=== PATIENT | female | born 1930 | race Caucasian/White ===

== ENCOUNTER 2016-06-04 16:24 | Inpatient (IN) | payer MEDICARE, BC ==
--- NOTE | ~2016-06-04 | DS ---
Unit #: [id number] #: [id number] Patient: DEENA FLOOD ??? [address] [place], [place] [address] [id number] I MR#: [id number] NAME: DEENA FLOOD ROOM: 474 Age: 86 Sex: F Admission Date: 06/04/2016 : 1930 Discharge Date: Attending Physician: Ivan Brooks M.D. DISCHARGE SUMMARY ADDENDUM Apparently, after speaking to the nurse and occupational therapist, the patient is a falls risk. She fell last night getting from the bedside commode to the bed, and she will need more therapy for ambulation assist prior to going home. Cardiology will clear her for discharge to subacute rehab if a bed becomes available. We have asked for special education case manager to place her in a subacute rehab facility for more mobility management and followup. The special education case manager will arrange placement with rehab today or tomorrow. Dictated by... GORDO Larkin TD: 06/10/2016 11:18 JOB #: [id number] DISCHARGE SUMMARY X X DISCHARGE SUMMARY
--- NOTE | ~2016-06-04 | CO ---
Unit #: [id number] #: [id number] Patient: DEENA FLOOD [id number] [address] [place], [place] [address] [id number] I MR#: [id number] NAME: DEENA FLOOD. ROOM: 555 Age: 86 Sex: F Admission Date: 06/04/2016 : 1930 Attending Physician: Ivan Brooks M.D. Primary Care Physician: Zandra Primary Care Physician Consultation Date: 06/06/2016 CONSULTATION REPORT REASON FOR CONSULTATION Elevated creatinine level. The patient is an 86-year-old white female with known history of coronary artery disease, status post CABG in 2013 with PLUNKETT to LAD and SVG to OM1 and distal RCA. The patient also has a history of chronic atrial fibrillation and previous admissions for the same. Creatinine level in the last three to four months has ranged in 2 to 2.5 with creatinine level of 0.9 in 2013. The intervening creatinines are not currently available. Patient admitted for possible cardioversion for her ongoing atrial fibrillation. PAST SURGICAL HISTORY Significant for: 1. CABG x3 in 2013. 2. PLUNKETT to LAD. 3. SVG to OM2. 4. Distal RCA. 5. Appendectomy. PAST SURGICAL HISTORY Significant for: 1. Coronary artery disease. 2. CKD stage 3. FAMILY HISTORY Unremarkable for end stage renal disease. ALLERGIES Penicillin. REVIEW OF SYSTEMS CVS: As above. RESPIRATORY: No cough, no expectoration. GI: No vomiting, no diarrhea. : No hematuria, no dysuria. PHYSICAL EXAMINATION GENERAL: The patient is awake and alert. VITAL SIGNS: The temperature is 98.9, pulse is 109/minute, blood pressure is 152/88. HEENT: Head is atraumatic. Extraocular movements are intact. Sclerae are anicteric. NECK: Supple. There is no elevation of the JVD. Unit #: [id number] #: [id number] Patient: DEENA FLOOD CHEST: Clear. Air entry is equal bilaterally. Breathing is vesicular in nature. HEART: S1, S2 audible. There is no S3, no S4. ABDOMEN: Soft. There is no organomegaly. No guarding, no rigidity, no rebound tenderness. There is trace edema. NEUROLOGICAL: Sensory exam and motor system intact. Cerebellar system is intact. DIAGNOSTIC STUDIES LABORATORY: Sodium is 142, potassium is 5.2, chloride is 98, CO2 is 29, BUN is 44, glucose is 93, creatinine is 2.8, calcium is 9.5, magnesium is 2. BNP is 1373. CBC is not available. IMPRESSION 1. Chronic kidney disease, likely stage 3, secondary to hypertensive nephrosclerosis: Will consider workup for paraproteinemia. Previously, proteinuria has been unremarkable. 2. Coronary artery disease. 3. Atrial fibrillation. 4. Status post coronary artery bypass graft x3. 5. Hypertension. Will follow the patient with you. Dictated by... Stephon Goddard TD: 06/06/2016 09:24 JOB #: [id number] CONSULTATION REPORT X Luis Eduardo Cuevas MD X CONSULTATION REPORT
--- NOTE | ~2016-06-04 | CR72 ---
[facility] A Service of [facility] RADIOLOGY TEXT RESULTS PATIENT: DEENA FLOOD LOCATION: [facility] 555 : [birth year] UNIT #: [id number] AGE: [address]: Ivan Brooks MD SEX: F ORDER DR: [id number] [facility] [address] [place], [place] [address] [id number] I MR#: [id number] Acc #: [id number] NAME: DEENA FLOOD : 1930 SEX: F STUDY DATE/TIME: 06/04/2016 19:13 UNIT: [facility] ROOM: [facility] STUDY DESCRIPTION: CR Chest Single View Portable Attending Physician: Ivan Brooks M.D. Ordering Physician: Ivan Brooks M.D. Primary Care Physician: Primary Care Physician No MEDICAL IMAGING REPORT This report is preliminary unless electronic signature is present EXAM Portable AP view of the chest, 06/04/2016 COMPARISON May 20, 2016; April 12, 2013 and April 25, 2012. INDICATION 86-year-old female with weakness and dyspnea today. History of CHF. FINDINGS Cardiomegaly and mediastinal widening are again noted. Mediastinal widening is likely vascular in nature. There is minimal calcification of the thoracic aorta. Changes of CABG noted. Median sternotomy wires appear intact. There is likely dense calcification of the mitral valve annulus. No evidence of pneumothorax, pleural effusion or acute airspace disease. No pulmonary edema. Healed fracture of the right humeral neck again noted. IMPRESSION 1. Cardiomegaly and diminished lung volumes. No acute radiographic abnormality of the chest. 2. Prior CABG. 3. Healed fracture of the right humeral neck. 4. Dense mitral valve annular calcification. Dictated by... Heath Santos M.D. THIS IS AN ELECTRONICALLY VERIFIED REPORT Heath Santos M.D. at 06/06/2016 2:11 PM OLVIN/dillon [facility] A Service of [facility] RADIOLOGY TEXT RESULTS PATIENT: DEENA FLOOD [id number] : [birth year] UNIT #: [id number] AGE: [address]: Ivan Brooks MD SEX: F ORDER DR: TD: 06/04/2016 23:46 JOB #: [id number] MEDICAL IMAGING REPORT COPY
--- NOTE | ~2016-06-04 | EKG ---
PATIENT: DEENA FLOOD UNIT #: [id number] Ventricular Rate: 90 BPM Atrial Rate: 120 BPM QRS Duration: 90 ms Q-T Interval: 392 ms QTC Calculation(Bezet): 479 ms Calculated R [place]: 115 degrees Calculated T [place]: -118 degrees Diagnosis Line: Atrial fibrillation Diagnosis Line: Right axis deviation Diagnosis Line: T wave abnormality, consider inferolateral Diagnosis Line: ischemia or digitalis effect Diagnosis Line: Prolonged QT Diagnosis Line: Abnormal ECG Diagnosis Line: When compared with ECG of 04-JUN-2016 17:38, Diagnosis Line: (unconfirmed) Diagnosis Line: QRS axis Shifted right Diagnosis Line: Confirmed by ANTOINE NOE MD ([id number]) on 06/05/2016 Diagnosis Line: 6:16:10 PM INTERPRETING MD: KUSUM LINDO
--- NOTE | ~2016-06-04 | CT122 ---
[facility] A Service of [facility] RADIOLOGY TEXT RESULTS PATIENT: DEENA FLOOD LOCATION: [facility] : [birth year] UNIT #: [id number] AGE: [address]: Ivan Brooks MD SEX: F ORDER DR: [id number] [facility] [address] [place], [place] [address] [id number] I MR#: [id number] Acc #: [id number] NAME: DEENA FLOOD : 1930 SEX: F STUDY DATE/TIME: 06/06/2016 12:03 UNIT: [facility] ROOM: [facility] STUDY DESCRIPTION: CT Thoracic Spine Wo Cont Attending Physician: Ivan Brooks M.D. Ordering Physician: Ivan Brooks M.D. Primary Care Physician: No Primary Care Physician MEDICAL IMAGING REPORT This report is preliminary unless electronic signature is present EXAM Thoracic spine CT no contrast 06/06/2016 COMPARISON None. PROCEDURE Axial unenhanced thoracic spine CT with multiplanar reformats. This CT exam was performed with one or more of the following radiation dose reduction techniques: automatic exposure control, adjustment of mA and/or kV according to patient size, and iterative reconstruction. HISTORY Pain between shoulder blades for 4 months. FINDINGS There is thoracic spinal degenerative change, but no fracture or bone erosion or destruction. The paraspinous soft tissues are remarkable for small bilateral pleural effusions. Images of the upper abdomen are unremarkable. There is a large left renal simple cyst. IMPRESSION Degenerative change but no fracture or bone destruction or acute abnormality or other suggestion of substantial canal stenosis at any level. Incidentally noted small pleural effusions. Dictated by... Christopher Wheeler M.D. THIS IS AN ELECTRONICALLY VERIFIED REPORT Christopher Wheeler M.D. at 06/07/2016 3:14 PM TEV/aa [facility] A Service of [facility] RADIOLOGY TEXT RESULTS PATIENT: DEENA FLOOD LOCATION: [facility] : [birth year] UNIT #: [id number] AGE: [address]: Ivan Brooks MD SEX: F ORDER DR: TD: 06/06/2016 18:43 JOB #: [id number] MEDICAL IMAGING REPORT COPY
--- NOTE | ~2016-06-04 | DS ---
Unit #: [id number] #: [id number] Patient: DEENA FLOOD [id number] [address] [place], [place] [address] [id number] I MR#: [id number] NAME: DEENA FLOOD ROOM: 474 Age: 86 Sex: F Admission Date: 06/04/2016 : 1930 Discharge Date: 06/09/2016 Attending Physician: Ivan Brooks M.D. Primary Care Physician: No Primary Care Physician DISCHARGE SUMMARY DISCHARGE DIAGNOSES 1. Permanent atrial fibrillation, currently rate controlled. 2. Chronic kidney disease. 3. Acute on chronic diastolic heart failure. Left ventricular function normal with ejection fraction of 45% to 50%. 4. Valvular heart disease and supratherapeutic International Normalized Ratio. 5. Hypertension. 6. Previous history of coronary artery disease status post coronary artery bypass grafting back in 2012. HOSPITAL COURSE The patient came to the emergency room for increased and worsening shortness of breath and heart palpitations and was found to be in atrial fibrillation with RVR. This is not new for her. She has had recurrent atrial fibrillation in the past. She was started on Coumadin last month. She was admitted and treated for her volume overload, CHF exacerbation and for A fib. She was given an amiodarone bolus to control her rate and diuretics for fluid removal. During the course of hospitalization, for her known chronic kidney disease we consulted Dr. Cuevas with nephrology, who followed her and has cleared her for discharge. She developed back pain, which was present on admission but was unrelieved until we ordered Percocet, which has completely relieved her pain. We also checked a CT of her spine to rule out any acute findings for causing her back pain. It did show degenerative changes but no fracture and no acute abnormality. An incidental finding of small pleural effusion was seen. Single view of the chest showed cardiomegaly with diminished lung volumes but no acute abnormality. No pulmonary edema. Today she is pain free and doing well. PT and OT were also consulted, and she has worked with them. While she was hospitalized, she was found to be over anticoagulated with her INR elevated at 5.7. She was given a 5-mg dose of vitamin K. We have closely monitored her INR, and it is currently therapeutic today at 3. She will be instructed to restart her Coumadin, at half the dose she was previously taking, at 2.5 mg daily to start on 06/10, and I will write for her to have her INR checked in 2 weeks. DISCHARGE MEDICATIONS 1. Medrol Dosepak with taper. Unit #: [id number] #: [id number] Patient: DEENA FLOOD 2. Coumadin 2.5 mg daily. 3. Cardizem 120 mg daily. 4. Lopressor 75 mg b.i.d. 5. Lasix 40 mg b.i.d. 6. Multivitamin. 7. Aspirin 81 daily. 8. Oxycodone/acetaminophen 5/325 mg tablets q.8 hours as needed for back pain. 9. Potassium 20 mEq p.o. daily. NOTE: Prescriptions were provided for the Medrol Dosepak, for Coumadin at the new reduced dose of 2.5 mg daily, for Cardizem 120 mg daily, for the new dosing of Metoprolol to be 75 mg b.i.d. and also for oxycodone/acetaminophen 5/325 mg 1 tablet q.8 hours as needed for back pain. I have given her 14 days worth of pain medicine. DIAGNOSTIC TESTING CARDIOVASCULAR: A 12-lead EKG on 06/04/16 was obtained and showed atrial fibrillation with a rapid ventricular response, 121 beats per minute. She did have some ST and T wave abnormality to consider for inferolateral ischemia. On 06/05/16 she had a repeat 12-lead EKG with a controlled ventricular rate of 90. She was still found to be in atrial fibrillation and did have a right axis deviation. Telemetry review shows she is maintained in atrial fibrillation. IMAGING: Chest x-ray and a CT of the spine were done as indicated above. LABORATORY TESTING: PT was 32.9, INR 3. Sodium 139, potassium 4.6, chloride 97, CO2 32, BUN 39, creatinine 2.4, glucose 158, magnesium 1.8. AST is noted to be 82, ALT 70, alkaline phosphatase 68. A BNP was checked on admission date, and it was 1,373. TSH was also checked, and it was 4.26. WBC is 5.2, hemoglobin 15.2, hematocrit 47.3, platelet count 189. PLAN Discharge home. DISCHARGE CONDITION Stable. FOLLOWUP Follow up in 2 weeks for an INR check. Follow up in [address] Brooks. Please call [facility] at [phone] to schedule that appointment. As it is a Friday and the office is closed, I cannot provide a followup appointment for her. Renal has signed off and cleared her for discharge. Dictated by... Emilia Sevilla APRN for Stephon Ortiz/antione TD: 06/10/2016 10:38 JOB #: [id number] Unit #: [id number] #: [id number] Patient: FLOODDANIELLADEENA R DISCHARGE SUMMARY X X DISCHARGE SUMMARY
--- NOTE | ~2016-06-04 | EKG ---
PATIENT: DEENA FLOOD UNIT #: [id number] Ventricular Rate: 121 BPM Atrial Rate: 125 BPM QRS Duration: 98 ms Q-T Interval: 292 ms QTC Calculation(Bezet): 414 ms Calculated R [place]: 76 degrees Calculated T [place]: -125 degrees Diagnosis Line: Atrial fibrillation with rapid ventricular Diagnosis Line: response Diagnosis Line: ST and T wave abnormality, consider inferolateral Diagnosis Line: ischemia Diagnosis Line: Abnormal ECG Diagnosis Line: When compared with ECG of 20-MAY-2016 07:00, Diagnosis Line: No significant change was found Diagnosis Line: Confirmed by ANTOINE NOE MD ([id number]) on 06/05/2016 Diagnosis Line: 6:12:06 PM INTERPRETING MD: KUSUM LINDO
[~2016-06-04 16:24] MED LIST: AMIODARONE PO; ASPIRIN81 MG PO; CARVEDILOL6.25 MG PO; COREG12.5 MG PO; COUMADIN5 MG PO; K-DUR20 ME1 PO; LASIX PO; LISINOPRIL10 MG PO; METOPROLOL TAR25 MG PO; MULTIVITAMINS1 EAC2 PO; NO MEDICATIONS; POTASSIUM GLUC500 GM PO
[2016-06-04] MEDS ORDERED: KCL PO (18:15)
[2016-06-04 18:41] LABS: ALBUMIN SERUM 3.9 g/dL (3.5-5.0); BILIRUBIN,TOTAL 1.4 mg/dL (0.2-2.0); CALCIUM SERUM 9.2 mg/dL (8.4-10.2); POTASSIUM 3.9 mmol/L (3.5-5.1); PROTEIN TOTAL SERUM 7.2 g/dL (6.0-8.3)
[2016-06-04 18:44] LABS: INR 2.8; PROTHROMBIN TIME (PATIENT) 30.8 SECONDS (9.6-11.5)
[2016-06-05 05:29] LABS: INR 3.8; PROTHROMBIN TIME (PATIENT) 41.9 SECONDS (9.6-11.5)
[2016-06-06 06:36] LABS: PROTHROMBIN TIME (PATIENT) 53.5 SECONDS (9.6-11.5)
[2016-06-06 06:39] LABS: INR 4.8
[2016-06-06 07:22] LABS: BUN/CREATININE RATIO 15.71; CALCIUM SERUM 9.5 mg/dL (8.4-10.2); CREATININE SERUM 2.8 mg/dL (0.6-1.4); GLOM FILT RATE Estimated 16.9 mL/min (>60); POTASSIUM 5.2 mmol/L (3.5-5.1)
[2016-06-06 16:40] LABS: PROTHROMBIN TIME (PATIENT) 62.4 SECONDS (9.6-11.5)
[2016-06-06 16:49] LABS: INR 5.6
[2016-06-06 17:03] LABS: BUN/CREATININE RATIO 16.2; CALCIUM SERUM 8.7 mg/dL (8.4-10.2); CREATININE SERUM 2.9 mg/dL (0.6-1.4); GLOM FILT RATE Estimated 16.3 mL/min (>60); POTASSIUM 5.1 mmol/L (3.5-5.1)
[2016-06-07 05:31] LABS: PROTHROMBIN TIME (PATIENT) 62.9 SECONDS (9.6-11.5)
[2016-06-07 05:35] LABS: INR 5.6
[2016-06-07 06:45] LABS: BUN/CREATININE RATIO 16.07; CREATININE SERUM 2.8 mg/dL (0.6-1.4); GLOM FILT RATE Estimated 16.9 mL/min (>60); POTASSIUM 4.5 mmol/L (3.5-5.1)
[2016-06-08 09:21] LABS: HEMOGLOBIN 14.9 gm/dL (12.0-16.0); MEAN CELL VOLUME 95.4 FL (83-96); MEAN CORPUSCULAR HEMOGLOBIN 30.8 PG (28-34); MEAN CORPUSCULAR HGB CONC 32.3 g/dL (30-36); MEAN PLATELET VOLUME 8.1 FL (6.5-11.5); RED BLOOD COUNT 4.82 X10e (3.90-5.30); RED CELL DISTRIBUTION WIDTH 15.8 % (11.0-15.5); WHITE BLOOD COUNT 5.2 X10e3 (4.0-10.5)
[2016-06-08 09:42] LABS: PROTHROMBIN TIME (PATIENT) 63.7 SECONDS (9.6-11.5)
[2016-06-08 09:44] LABS: INR 5.7
[2016-06-08 09:49] LABS: ALBUMIN SERUM 3.2 g/dL (3.5-5.0); BILIRUBIN,TOTAL 1.1 mg/dL (0.2-2.0); BUN/CREATININE RATIO 16.4; CALCIUM SERUM 8.6 mg/dL (8.4-10.2); CREATININE SERUM 2.5 mg/dL (0.6-1.4); GLOM FILT RATE Estimated 19.3 mL/min (>60); MAGNESIUM 1.8 mg/dL (1.6-3.0); POTASSIUM 3.9 mmol/L (3.5-5.1); PROTEIN TOTAL SERUM 6.3 g/dL (6.0-8.3)
[2016-06-09 02:48] LABS: PROTHROMBIN TIME (PATIENT) 32.9 SECONDS (9.6-11.5)
[2016-06-09 03:00] LABS: BUN/CREATININE RATIO 16.25; CALCIUM SERUM 8.5 mg/dL (8.4-10.2); CREATININE SERUM 2.4 mg/dL (0.6-1.4); GLOM FILT RATE Estimated 20.2 mL/min (>60); MAGNESIUM 1.8 mg/dL (1.6-3.0); POTASSIUM 4.6 mmol/L (3.5-5.1)
[2016-06-09 03:24] LABS: HEMATOCRIT 47.3 % (35.0-45.0); HEMOGLOBIN 15.2 gm/dL (12.0-16.0); MEAN CELL VOLUME 95.1 FL (83-96); MEAN CORPUSCULAR HEMOGLOBIN 30.5 PG (28-34); MEAN CORPUSCULAR HGB CONC 32.1 g/dL (30-36); MEAN PLATELET VOLUME 8.4 FL (6.5-11.5); RED BLOOD COUNT 4.98 X10e (3.90-5.30); RED CELL DISTRIBUTION WIDTH 16.4 % (11.0-15.5); WHITE BLOOD COUNT 5.2 X10e3 (4.0-10.5)
[2016-06-10 03:21] LABS: INR 1.2
[2016-06-10 03:23] LABS: PROTHROMBIN TIME (PATIENT) 12.9 SECONDS (9.6-11.5)
== END 2016-06-10 17:31 | DRG 291 ==
LOC: C5B 16:24 → C4C 06-08 21:46
PROVIDERS: Internal Medicine Cardiovascular Disease; Internal Medicine Nephrology; Nurse Practitioner
DX: I13.0 Hypertensive heart and chronic kidney disease with heart failure and stage 1 through stage 4 chronic kidney disease, or unspecified chronic kidney disease (principal); I50.33 Acute on chronic diastolic (congestive) heart failure; N17.9 Acute kidney failure, unspecified; N18.4 Chronic kidney disease, stage 4 (severe); E87.5 Hyperkalemia; I48.2 Chronic atrial fibrillation; I25.119 Atherosclerotic heart disease of native coronary artery with unspecified angina pectoris; Z79.01 Long term (current) use of anticoagulants; I25.2 Old myocardial infarction; Z95.1 Presence of aortocoronary bypass graft; Z90.49 Acquired absence of other specified parts of digestive tract; Z90.710 Acquired absence of both cervix and uterus; Z82.49 Family history of ischemic heart disease and other diseases of the circulatory system; Z88.0 Allergy status to penicillin; M54.9 Dorsalgia, unspecified; R11.10 Vomiting, unspecified; T40.2X5A Adverse effect of other opioids, initial encounter
CPT/HCPCS: 71010; 72128; 80048; 80053; 83735; 83880; 84443; 85027; 85610; 93005; 97110; 97116; 97162; 97166; 97530; 97535; G8978-GP; G8979-GP; G8987-GO; G8988-GO; J0282; J1940; J2270; J2405; J3430

== ENCOUNTER 2016-07-16 23:46 | Emergency (ER) | payer MEDICARE, BC ==
--- NOTE | ~2016-07-16 | CR72 ---
[facility] A Service of [facility] RADIOLOGY TEXT RESULTS PATIENT: DEENA FLOOD LOCATION: [facility] : [birth year] UNIT #: [id number] AGE: [address]: Albino Hwang MD SEX: F ORDER DR: [id number] [facility] [address] [place], [place] [address] [id number] MR#: [id number] Acc #: [id number] NAME: DEENA FLOOD : 1930 SEX: F STUDY DATE/TIME: 07/16/2016 23:11 UNIT: [facility] ROOM: STUDY DESCRIPTION: CR Chest Single View Portable Attending Physician: Albino Hwang M.D. Ordering Physician: Ablino Hwang M.D. Primary Care Physician: Primary Care Physician No MEDICAL IMAGING REPORT This report is preliminary unless electronic signature is present EXAM Portable chest INDICATIONS Shortness of air, right-sided neck pain for the past few hours. PROCEDURE Frontal view chest COMPARISON 06/04/2016 FINDINGS Stable cardiomegaly. No new dense opacity. No pneumothorax. Stable irregularity of the left humeral neck. IMPRESSION No active process. No change from 06/04/2016. Dictated by... Jim Sanchez M.D. THIS IS AN ELECTRONICALLY VERIFIED REPORT Jim Sanchez M.D. at 07/17/2016 10:24 PM EED/psc TD: 07/17/2016 02:39 JOB #: [id number] MEDICAL IMAGING REPORT Page 1 of 1 COPY
--- NOTE | ~2016-07-16 | CR58 ---
[facility] A Service of [facility] RADIOLOGY TEXT RESULTS PATIENT: DEENA FLOOD LOCATION: [facility] : [birth year] UNIT #: [id number] AGE: [address]: Albino Hwang MD SEX: F ORDER DR: [id number] [facility] [address] [place], [place] [address] [id number] E MR#: [id number] Acc #: [id number] NAME: DEENA FLOOD : 1930 SEX: F STUDY DATE/TIME: 07/16/2016 23:12 UNIT: [facility] ROOM: STUDY DESCRIPTION: CR Cervical Spine 2 or 3 Views Attending Physician: Albino Hwang M.D. Ordering Physician: Albino Hwang M.D. Primary Care Physician: Primary Care Physician No MEDICAL IMAGING REPORT This report is preliminary unless electronic signature is present EXAM Cervical spine series INDICATIONS Neck pain for the past few hours. PROCEDURE 8 views of the cervical spine. COMPARISON None FINDINGS Patient mobility makes the evaluation difficult. There is approximately 3 mm anterolisthesis of C3 on 4. Other cervical bodies are not well evaluated. The craniocervical junction appears to be intact. The dens is not well seen. IMPRESSION 1. Difficult study secondary to patient mobility issues. Cervical spine is seen to approximately the C4 level. 2. There is 3 mm anterolisthesis of C3 on C4 probably on the grounds of degenerative change. There is multilevel facet arthrosis. Dictated by... Jim Sanchez M.D. THIS IS AN ELECTRONICALLY VERIFIED REPORT Jim Sanchez M.D. at 07/17/2016 10:24 PM EED/psc TD: 07/17/2016 02:41 [facility] A Service [facility] RADIOLOGY TEXT RESULTS PATIENT: DEENA FLOOD LOCATION: [facility] : [birth year] UNIT #: [id number] AGE: [address]: Albino Hwang MD SEX: F ORDER DR: RADHA #: [id number] MEDICAL IMAGING REPORT Page 1 of 1 COPY
--- NOTE | ~2016-07-16 | EKG ---
PATIENT: DEENA FLOOD UNIT #: [id number] Ventricular Rate: 99 BPM Atrial Rate: 75 BPM QRS Duration: 90 ms Q-T Interval: 356 ms QTC Calculation(Bezet): 456 ms Calculated R [place]: 95 degrees Calculated T [place]: -135 degrees Diagnosis Line: Atrial fibrillation Diagnosis Line: Rightward axis Diagnosis Line: Nonspecific ST and T wave abnormality Diagnosis Line: Abnormal ECG Diagnosis Line: No previous ECGs available Diagnosis Line: Confirmed by ANTOINE NOE MD ([id number]) on 07/17/2016 Diagnosis Line: 10:29:48 PM INTERPRETING MD: KUSUM LINDO
[2016-07-16 23:46] LABS: BASOPHIL# 0.1 X10e3 (0-0.3); BASOPHIL% 0.8 % (0-2.5); DIFF IND NO; EOSINOPHIL# 0.1 X10e3 (0-0.7); EOSINOPHIL% 1.2 % (0.0-7.0); HEMATOCRIT 46.4 % (35.0-45.0); HEMOGLOBIN 14.9 gm/dL (12.0-16.0); LYMPHOCYTE# 1.7 X10e3 (1.0-3.5); LYMPHOCYTE% 22.3 % (17.0-45.0); MEAN CELL VOLUME 95.5 FL (83-96); MEAN CORPUSCULAR HEMOGLOBIN 30.6 PG (28-34); MEAN CORPUSCULAR HGB CONC 32.1 g/dL (30-36); MEAN PLATELET VOLUME 8.1 FL (6.5-11.5); MONOCYTE# 0.9 X10e3 (0-1.0); MONOCYTE% 11.8 % (3.0-12.0); NEUTROPHIL# 4.9 X10e3 (1.5-7.1); NEUTROPHIL% 63.9 % (40-75); PLATELET COUNT 158 X10e3 (140-420); RED BLOOD COUNT 4.86 X10e (3.90-5.30); RED CELL DISTRIBUTION WIDTH 18.1 % (11.0-15.5); WHITE BLOOD COUNT 7.7 X10e3 (4.0-10.5)
[~2016-07-16 23:46] MED LIST changes: +KCL PO
[2016-07-16 23:59] LABS: POC - CKMB 1.8 ng/mL (0.0-7.9); POC - TROPONIN <0.05 ng/mL (<=0.05)
[2016-07-17 00:04] LABS: INR 1.3; PROTHROMBIN TIME (PATIENT) 13.4 SECONDS (9.6-11.5)
[2016-07-17 00:08] LABS: ALBUMIN SERUM 3.5 g/dL (3.5-5.0); BILIRUBIN, DIRECT 0.4 mg/dL (0.0-0.2); BILIRUBIN,INDIRECT 0.8 mg/dL (0.0-0.9); BILIRUBIN,TOTAL 1.2 mg/dL (0.2-2.0); BUN/CREATININE RATIO 21.76; CALCIUM SERUM 8.8 mg/dL (8.4-10.2); CREATININE SERUM 1.7 mg/dL (0.6-1.4); GLOM FILT RATE Estimated 26.5 mL/min (>60); POTASSIUM 4.8 mmol/L (3.5-5.1); PROTEIN TOTAL SERUM 6.8 g/dL (6.0-8.3)
[2016-07-17] MEDS ORDERED: METOPROLOL TAR25 MG PO (01:23)
[2016-07-17] MEDS ORDERED: KCL PO (01:23)
[2016-07-17] MEDS ORDERED: COUMADIN PO (01:23)
[2016-07-17] MEDS ORDERED: ASPIRIN81 MG PO (01:24)
[2016-07-17] MEDS ORDERED: AMIODARONE PO (01:24)
[2016-07-17] MEDS ORDERED: LASIX PO (01:24)
== END 2016-07-17 01:42 | disposition home or self-care (01) ==
LOC: CED 23:46
PROVIDERS: Emergency Medicine
DX: M54.2 Cervicalgia (principal); I48.91 Unspecified atrial fibrillation; N18.9 Chronic kidney disease, unspecified; I50.9 Heart failure, unspecified; Z90.49 Acquired absence of other specified parts of digestive tract; Z90.710 Acquired absence of both cervix and uterus; Z95.1 Presence of aortocoronary bypass graft; Z88.0 Allergy status to penicillin; Z79.01 Long term (current) use of anticoagulants
CPT/HCPCS: 36415; 71010; 72040; 80048; 80076; 82553; 83880; 84484; 85025; 85610; 85730; 93005; 96374; 99284